=== PATIENT | female | born 1980 | race Hispanic/Latino ===

== ENCOUNTER 2016-11-27 16:24 | Emergency (ER) | payer MEDICARE, OTHER ==
[~2016-11-27] VITALS: Ht 160 cm; Wt 88.9 kg
[2016-11-27] MEDS ORDERED: NAPROXEN500 MG PO (16:50)
[2016-11-27] MEDS ORDERED: IBUPROFEN600 MG (16:50)
[2016-11-27] MEDS ORDERED: NORCO 5-325 TA1 EACH PO (19:16)
[2016-11-27] MEDS ORDERED: PREDNISONE20 MG PO (19:16)
[2016-11-27] MEDS ORDERED: ONDANSETRON ODT8 MG PO (19:16)
== END 2016-11-27 19:39 | disposition home or self-care (01) ==
LOC: ED 16:24
DX: K52.89 Other specified noninfective gastroenteritis and colitis (principal); J45.909 Unspecified asthma, uncomplicated; F17.200 Nicotine dependence, unspecified, uncomplicated; Z90.710 Acquired absence of both cervix and uterus; Z90.49 Acquired absence of other specified parts of digestive tract; Z88.0 Allergy status to penicillin
CPT/HCPCS: 80053; 81001; 83690; 85025; 96361; 96374; 96375; 96376; 99283; J1170; J2405; J2930; J7030

== ENCOUNTER 2017-05-07 17:59 | Emergency (ER) | payer MEDICARE, OTHER ==
[~2017-05-07] VITALS: Ht 165.1 cm; Wt 88.4 kg
[~2017-05-07 17:59] MED LIST: IBUPROFEN600 MG; NAPROXEN500 MG PO; NORCO 5-325 TA1 EACH PO; ONDANSETRON ODT8 MG PO; PREDNISONE20 MG PO
[2017-05-07] MEDS ORDERED: ROBITUSSIN COU1 EACH PO (18:24)
== END 2017-05-07 20:24 | disposition home or self-care (01) ==
LOC: ED 17:59
DX: J45.901 Unspecified asthma with (acute) exacerbation (principal); J06.9 Acute upper respiratory infection, unspecified; F17.200 Nicotine dependence, unspecified, uncomplicated; Z91.038 Other insect allergy status; Z88.0 Allergy status to penicillin; Z91.013 Allergy to seafood; Z88.2 Allergy status to sulfonamides; Z91.030 Bee allergy status; Z79.899 Other long term (current) drug therapy
CPT/HCPCS: 99282